=== PATIENT | female | born 1980 | race Caucasian/White ===

== ENCOUNTER 2021-07-02 18:09 | Inpatient (IN) ==
[~2021-07-02 18:09] MED LIST: Dinoprostone 10 MG VAG.SUPP VAGINAL ONE; Lactated Ringers 1000 ml BAG 1,000 ML IV ONE
[2021-07-03] MEDS ORDERED: Lidocaine 4% GEL 10 GM TUBE TOPICAL PRN (19:34)
[2021-07-03 21:59] LABS: Urine Benzodiazepine Screen None Detected (None Detect); Urine Cannabinoids Screen None Detected (None Detect); Urine Opiates Screen None Detected (None Detect)
[2021-07-04] MEDS ORDERED: Oxytocin in LR 20 UNITS/1,000 ML BAG IVPB SCH (06:00)
[2021-07-04 11:43] LABS: Hematocrit 41 % (35-47); Hemoglobin 13.6 g/dL (12.0-16.0); Mean Corpuscular HGB Conc 34 g/dL (31-36); Mean Corpuscular Hemoglobin 30 pg (27-31); Mean Corpuscular Volume 90 fL (80-97); Mean Platelet Volume 11.8 fL (7.4-10.4); Platelet Count 170 10^3/uL (150-450); Red Blood Count 4.52 10^6 /uL (3.70-4.87); Red Cell Distribution Width 14 % (10-15); White Blood Count 8.7 10^3/uL (3.5-10.8)
[2021-07-04 11:45] LABS: ABS Eosinophils 0.1 10^3/ul (0-0.6); ABS Lymphocytes 1.5 10^3/ul (1.0-4.8); ABS Monocytes 0.6 10^3/ul (0-0.8); ABS Neutrophils 6.5 10^3/ul (1.5-7.7); Eosinophil % 0.9 %; Lymphocyte % 16.8 %; Nucleated Red Blood Cells % 0.1
[2021-07-04 12:33] LABS: Large Platelets Present
[2021-07-04] MEDS ORDERED: Witch Hazel PAD JAR ONE (17:14)
[2021-07-05] MEDS ORDERED: OBEPIDURAL 250 ML EPIDURAL ONE (04:03)
[2021-07-05] MEDS ORDERED: Phenylephrine 40 mcg/mL 10mL (400mcg) SYRINGE IV PUSH PRN ×2 (04:58)
[2021-07-05] MEDS ORDERED: Lactated Ringers 1000 ml BAG 1,000 ML IV ONE (04:58)
[2021-07-05] MEDS ORDERED: EPHEDrine (Pressors) 50 MG/ML VIAL IV PUSH PRN ×2 (04:58)
[2021-07-05] MEDS ORDERED: Lactated Ringers 1000 ml BAG 500 ML IV PRN (04:58)
[2021-07-05] MEDS ORDERED: Sodium Citrate/Citric Acid LIQ 15 ML UDC PO PRN (04:58)
[2021-07-05] MEDS ORDERED: Lactated Ringers 1000 ml BAG 1,000 ML IV SCH ×3 (05:00→18:00)
[2021-07-05] MEDS ORDERED: OBEPIDURAL 250 ML EPIDURAL SCH (05:00)
[2021-07-05 06:38] LABS: Urine Appearance Clear; Urine Bilirubin Negative (Negative); Urine Blood Negative (Negative); Urine Color Yellow; Urine Glucose Negative (Negative); Urine Ketones 1+ (Negative); Urine Nitrite Negative (Negative); Urine Protein Negative (Negative); Urine Specific Gravity 1.015 (1.002-1.030); Urine Urobilinogen Negative (Negative)
[2021-07-05] MEDS ORDERED: Witch Hazel PAD JAR TOPICAL SCH (09:00)
[2021-07-05] MEDS ORDERED: Metoclopramide 5 MG/ML VIAL (10 mg) IV PRN (09:14)
[2021-07-05] MEDS ORDERED: Dibucaine 1% OINT 28.35 GM TUBE PR PRN (17:31)
[2021-07-05] MEDS ORDERED: RHO D Immune Globulin (HUMAN) 300 MCG = 1,500 I.U. INJ IM PRN (17:31)
[2021-07-05] MEDS ORDERED: Witch Hazel PAD JAR TOPICAL PRN (17:31)
[2021-07-05] MEDS ORDERED: Oxytocin in LR 20 UNITS/1,000 ML BAG IVPB SCH (18:00)
[2021-07-05] MEDS ORDERED: Lidocaine 1% MPF 5 ML VIAL ONE (21:55)
[2021-07-06 06:34] LABS: ABS Basophils 0.1 10^3/ul (0-0.2); ABS Eosinophils 0.1 10^3/ul (0-0.6); ABS Monocytes 0.9 10^3/ul (0-0.8); ABS Neutrophils 12.1 10^3/ul (1.5-7.7); Eosinophil % 0.5 %; Hematocrit 35 % (35-47); Hemoglobin 11.6 g/dL (12.0-16.0); Lymphocyte % 13.2 %; Mean Corpuscular HGB Conc 34 g/dL (31-36); Mean Corpuscular Hemoglobin 30 pg (27-31); Mean Corpuscular Volume 90 fL (80-97); Mean Platelet Volume 11.3 fL (7.4-10.4); Platelet Count 146 10^3/uL (150-450); Red Blood Count 3.83 10^6 /uL (3.70-4.87); Red Cell Distribution Width 14 % (10-15); White Blood Count 15.1 10^3/uL (3.5-10.8)
[2021-07-07 08:26] VITALS: BP 107/68
== END 2021-07-07 16:54 | disposition home or self-care (01) | DRG 560 ==
LOC: MCHOBOUT 18:09 → MCHOB 18:16
PROVIDERS: ADMIT Midwife; ATTEND Advanced Practice Midwife